=== PATIENT | male | born 1980 | race African-American/Black ===

== ENCOUNTER 2021-07-27 16:54 | Emergency (ER) | payer MEDICAID ==
[~2021-07-27] VITALS: Ht 165.1 cm; Wt 104.3 kg
[2021-07-27] MEDS ORDERED: METFORMIN HCL500 MG PO (17:12)
[2021-07-27] MEDS ORDERED: AMLODIPINE BESYL5 MG PO (17:13)
[2021-07-27] MEDS ORDERED: VENTOLIN HFA18 GM (17:15)
[2021-07-27] MEDS ORDERED: ESCITALOPRAM OX10 MG PO (17:15)
--- OUTSIDE RECORDS SUMMARY | 2021-07-27 18:54 | XMS ---
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 PHONE: [phone] Pastora has no Care Guidelines for this patient. Larissa VISIT COUNT (12 MO.) 3 Laurie Jarrell 1 Yury Shelly Somers TOTAL 5 NOTE: Visits indicate total known visits. ED/UCC VISIT TRACKING (12 MO.) 07/27/2021 16:55 [facility]: [facility] DIAGNOSES: - Hypertension [facility] DIAGNOSES: - Anxiety - Essential (primary) hypertension - Hypertension 04/06/2021 17:52 Yury [place] TYPE: Emergency DIAGNOSES: - Type 2 diabetes mellitus with hyperglycemia - Injury of conjunctiva and corneal abrasion without foreign body, left eye, initial encounter - Concussion with loss of consciousness of unspecified duration, initial encounter - Ocular pain, left eye 10[facility]06/2020 19[facility] [place] [facility] DIAGNOSES: - Emesis - x3 NV/D - Vomiting, unspecified INPATIENT VISIT TRACKING (12 MO.) No inpatient visits to display in this time frame [email or web address]
--- NOTE | 2021-07-28 16:18 | EKG ---
[facility] [address] [place] [address] Signed Sinus tachycardia Left axis deviation Minimal voltage criteria for LVH, may be normal variant ( R in aVL ) Abnormal ECG No previous ECGs available Confirmed by SHAUNA CLOUD MD ([id number]) on 07/28/2021 4:17:45 PM Electronically Signed By: SHAUNA CLOUD MD 07/28/21 1618 PATIENT NAME: MACKENZIE COREAS Electrocardiogram DATE OF : 84 PHYSICIAN: SHAUNA CLOUD MD REPORT #: [id number] REPORT IS CONFIDENTIAL AND NOT TO BE RELEASED WITHOUT AUTHORIZATION
== END 2021-07-27 18:36 | disposition home or self-care (01) ==
LOC: ED 16:54
DX: F41.9 Anxiety disorder, unspecified (principal); I10 Essential (primary) hypertension; E11.9 Type 2 diabetes mellitus without complications; Z79.899 Other long term (current) drug therapy; Z79.84 Long term (current) use of oral hypoglycemic drugs
CPT/HCPCS: 71045; 80053; 83735; 84484; 85025; 93005; 93010; 99285-25